=== PATIENT | male | born 1965 | race Caucasian/White ===

== ENCOUNTER 2017-12-05 12:37 | Emergency (ER) | payer SELFPAY ==
[~2017-12-05] VITALS: Ht 167.6 cm; Wt 53.5 kg
[2017-12-05 12:57] VITALS: BP 147/87
--- NOTE | 2017-12-05 18:03 | NUR ---
PATIENT TO BED #3
--- NOTE | 2017-12-05 18:14 | NUR ---
PATIENT PRESENTS TO ED WITH RUQ ABD PAIN THAT RADIATES TO THE R BACK X 1 MONTH . PT STATES PAIN IS WORSE WHEN HE EATS FATTY FOODS OR COFFEE PT ALSO STATES HE HAS BRIGHT RED BLOOD IN STOOL. DENIES N/V/D; SKIN IS PINK/WARM/DRY; AAOX4 WITH EVEN AND STEADY GAIT; LUNGS CLEAR BL; HR EVEN AND REGULAR; PT DENIES ANY FEVER, CP, SOB, OR COUGH AT THIS TIME; PATIENT STATES PAIN OF 8/10 AT THIS TIME; VSS; PATIENT POSITIONED FOR COMFORT; HOB ELEVATED; BEDRAILS UP X2; BED DOWN. ER MD MADE AWARE OF PT STATUS.
--- NOTE | 2017-12-05 19:13 | NUR ---
ENDORSED PATIENT TO EMILIANO BENITEZ
[2017-12-05] MEDS ORDERED: NACL 0.9% 1,000 ML IV ONE (19:30)
[2017-12-05 20:15] LABS: BASOPHILS # (AUTO) 0.5 K/uL (0.00-0.22); HEMATOCRIT 38.2 % (36-52); HEMOGLOBIN 12.7 g/dL (12.0-18.0); LYMPHOCYTES # (AUTO) 1.7 K/uL (2.0-11.5); MEAN CORPUSCULAR HEMOGLOBIN 32 pg (27-31); MEAN CORPUSCULAR HGB CONC 33 g/dL (33-37); MEAN CORPUSCULAR VOLUME 95 fL (80-94); MONOCYTES # (AUTO) 0.7 K/uL (0.8-1.0); NEUTROPHILS # (AUTO) 5.8 K/uL (1.8-7.7); PLATELET COUNT (AUTO) 228 K/uL (140-450); RED CELL DISTRIBUTION WIDTH 13.2 % (11.6-13.7); WHITE BLOOD COUNT (AUTO) 8.7 K/uL (4.8-10.8)
[2017-12-05 20:31] LABS: ANION GAP 11.5 (8-16); CARBON DIOXIDE 28.2 mmol/L (21-32); CREATININE 0.8 mg/dL (0.7-1.3); POTASSIUM 3.7 mmol/L (3.5-5.1)
[2017-12-05 20:34] LABS: ALBUMIN 3.9 g/dL (3.4-5.0); TOTAL BILIRUBIN 0.6 mg/dL (0.0-1.0)
--- NOTE | 2017-12-05 21:30 | NUR ---
Patient appears to be resting comfortably in bed. Vital Signs within normal limits. Respirations even and unlabored.
--- NOTE | 2017-12-05 23:12 | NUR ---
Patient discharged with v/s stable. Written and verbal after care instructions given and explained. Patient alert, oriented and verbalized understanding of instructions. Ambulatory with steady gait. All questions addressed prior to discharge. ID band removed. Patient advised to follow up with PMD. Rx of COLACE AND PEPCID given. Patient educated on indication of medication including possible reaction and side effects. Opportunity to ask questions provided and answered.
[2017-12-05 23:14] VITALS: BP 12/68
[2017-12-06 00:39] LABS: APPEARANCE,URINE CLEAR (CLEAR); BILIRUBIN,URINE NEGATIVE (NEGATIVE); BLOOD, URINE NEGATIVE (NEGATIVE); COLOR,URINE YELLOW (YELLOW); LEUKOCYTE ESTERASE ,URINE NEGATIVE (NEGATIVE); NITRITE, URINE NEGATIVE (NEGATIVE); PH,URINE 7.5 (5.0-9.0); UGLUCOSE NEGATIVE (NEGATIVE)
[2017-12-06 00:48] LABS: RBC,URINE 0-5 (RARE) /HPF (0-5); WBC,URINE 0-5 (RARE) /HPF (0-5)
== END 2017-12-05 23:12 | disposition home or self-care (01) ==
LOC: MED 12:37
DX: R10.11 Right upper quadrant pain (principal); K64.4 Residual hemorrhoidal skin tags; I10 Essential (primary) hypertension
CPT/HCPCS: 36415; 74177; 80053; 81001; 83690; 85025; 86886; 86900; 86901; 96360; 99285; J7030; Q9967